=== PATIENT | female | born 2000 | race American Indian/Alaskan Native ===

== ENCOUNTER 2021-03-27 07:05 | Emergency (ER) | payer SELFPAY ==
--- NOTE | 2021-03-27 07:34 | Emergency Department Report ---
HPI - General Chief Complaint: Abdominal Pain Time Seen by Provider: 03/27/21 07:22 - HPI HPI: 20-year-old -[place] female presents to the emergency department with a complaint of some lower abdominal and pelvic pain, low back pain, vaginal bleedi ng including clots, that started a few hours prior to presentation while at work. The patient admits that she is trying to get but has not had any home tests and wonders whether she could be having a miscarriage. She denies any fever, dysuria, vaginal discharge, chest pain, shortness of breath. She has not taken anything for symptoms prior to presentation. She denies any past medical history other than anxiety. The patient was feeling anxious about her symptoms so she took her hydroxyzine this morning with some improvement. As part of the screening questions at triage, when asked if the patient has suicidal ideations, the patient admitted to having them intermittently. I asked the patient about this and she says that she does have them intermittently when she gets anxious. At the time of my examination she denies current suicidal ideations. She denies any homicidal ideations or any hallucinations. ED Past Medical Hx - Past Medical History Previous Medical History?: No - Surgical History Past Surgical History?: No ED Review of Systems ROS: Stated complaint: ABD PAIN Other details as noted in HPI Comment: All other systems reviewed and negative Constitutional: denies: chills, fever Eyes: denies: eye pain, vision change ENT: denies: ear pain, throat pain Respiratory: denies: cough, shortness of breath Cardiovascular: denies: chest pain, palpitations Gastrointestinal: abdominal pain. denies: vomiting Genitourinary: other (Pelvic pain, vaginal bleeding) Musculoskeletal: back pain. denies: arthralgia Skin: denies: rash, lesions Neurological: denies: headache, weakness Physical Exam - Physical Exam Vital Signs: Vital Signs 03/27/21 03/27/21 07:12 07:24 Temperature 100.4 F H Pulse Rate 93 H Respiratory 20 Rate Blood Pressure 120/60 [Right] O2 Sat by Pulse 96 98 Oximetry Physical Exam: GENERAL: The patient is well-developed well-nourished. HENT: Normocephalic. Atraumatic. Patient has moist mucous membranes. EYES: Extraocular motions are intact NECK: Supple. Trachea is midline. CHEST/LUNGS: Clear to auscultation. There is no respiratory distress noted. HEART/CARDIOVASCULAR: Regular. There is no tachycardia. There is no murmur. ABDOMEN: Abdomen is soft, nontender. Patient has normal bowel sounds. SKIN: Skin is warm and dry. NEURO: The patient is awake, alert, and oriented. The patient is cooperative. Normal speech. MUSCULOSKELETAL: There is no tenderness or deformity. There is no limitation range of motion. ED Course Vital Signs 03/27/21 03/27/21 07:12 07:24 Temperature 100.4 F H Pulse Rate 93 H Respiratory 20 Rate Blood Pressure 120/60 [Right] O2 Sat by Pulse 96 98 Oximetry ED Medical Decision Making - Lab Data Result diagrams: 03/27/21 07:39 03/27/21 07:39 Lab Results 03/27/21 03/27/21 03/27/21 Range/Units 07:30 07:30 07:39 WBC 3.4 L (4.5-11.0) K/mm3 RBC 4.32 (3.65-5.03) M/mm3 Hgb 12.0 (10.1-14.3) gm/dl Hct 38.6 (30.3-42.9) % MCV 89 (79-97) fl MCH 28 (28-32) pg MCHC 31 (30-34) % RDW 13.2 (13.2-15.2) % Plt Count 161 (140-440) K/mm3 Lymph % (Auto) [employer] [place] % (Auto) Metal Grinder Eos % (Auto) Metal Grinder Baso % (Auto) Metal Grinder Lymph # (Auto) Metal Grinder [place] # (Auto) Metal Grinder Eos # (Auto) Metal Grinder Baso # (Auto) Metal Grinder Seg Neutrophils % Metal Grinder Seg Neutrophils # Metal Grinder PT (12.2-14.9) Sec. INR (0.87-1.13) Sodium (137-145) mmol/L Potassium (3.6-5.0) mmol/L Chloride (98-107) mmol/L Carbon Dioxide (22-30) mmol/L Anion Gap mmol/L BUN (7-17) mg/dL Creatinine (0.6-1.2) mg/dL Estimated GFR ml/min BUN/Creatinine Ratio % Glucose (65-100) mg/dL Calcium (8.4-10.2) mg/dL Total Bilirubin (0.1-1.2) mg/dL Direct Bilirubin (0-0.2) mg/dL Indirect Bilirubin mg/dL AST (5-40) units/L ALT (7-56) units/L Alkaline Phosphatase (35-129) units/L Total Protein (6.3-8.2) g/dL Albumin (3.9-5) g/dL Albumin/Globulin Ratio % Lipase (13-60) units/L HCG, Qual (Negative) Urine Color Yellow (Yellow) Urine Turbidity Clear (Clear) Urine pH 8.0 H (5.0-7.0) Ur Specific [place] 1.016 (1.003-1.030) Urine Protein <15 mg/dl (Negative) mg/dL Urine Glucose (UA) Neg (Negative) mg/dL Urine Ketones Neg (Negative) mg/dL Urine Blood Neg (Negative) Urine Nitrite Neg (Negative) Urine Bilirubin Neg (Negative) Urine Urobilinogen < 2.0 (<2.0) mg/dL Ur Leukocyte Esterase Neg (Negative) Urine WBC (Auto) 2.0 (0.0-6.0) /HPF Urine RBC (Auto) 2.0 (0.0-6.0) /HPF U Epithel Cells (Auto) 2.0 (0-13.0) /HPF Urine Mucus Few /HPF Urine Opiates Screen Negative Urine Methadone Screen Negative Ur Barbiturates Screen Negative Ur Phencyclidine Scrn Negative Ur Amphetamines Screen Negative U Benzodiazepines Scrn Negative Urine Cocaine Screen Negative U Marijuana (THC) Screen Positive Drugs of Abuse Note Disclamer Plasma/Serum Alcohol (0-0.07) % 03/27/21 03/27/21 03/27/21 Range/Units 07:39 07:39 07:39 WBC (4.5-11.0) K/mm3 RBC (3.65-5.03) M/mm3 Hgb (10.1-14.3) gm/dl Hct (30.3-42.9) % MCV (79-97) fl MCH (28-32) pg MCHC (30-34) % RDW (13.2-15.2) % Plt Count (140-440) K/mm3 Lymph % (Auto) [place] % (Auto) Eos % (Auto) Baso % (Auto) Lymph # (Auto) [place] # (Auto) Eos # (Auto) Baso # (Auto) Seg Neutrophils % Seg Neutrophils # PT 14.0 (12.2-14.9) Sec. INR 0.97 (0.87-1.13) Sodium 140 (137-145) mmol/L Potassium 3.8 (3.6-5.0) mmol/L Chloride 103.5 (98-107) mmol/L Carbon Dioxide 23 (22-30) mmol/L Anion Gap 17 mmol/L BUN 10 (7-17) mg/dL Creatinine 1.1 (0.6-1.2) mg/dL Estimated GFR > 60 ml/min BUN/Creatinine Ratio 9 % Glucose 104 H (65-100) mg/dL Calcium 8.8 (8.4-10.2) mg/dL Total Bilirubin 0.20 (0.1-1.2) mg/dL Direct Bilirubin < 0.2 (0-0.2) mg/dL Indirect Bilirubin 0.0 mg/dL AST 17 (5-40) units/L ALT 10 (7-56) units/L Alkaline Phosphatase 50 (35-129) units/L Total Protein 6.5 (6.3-8.2) g/dL Albumin 4.0 (3.9-5) g/dL Albumin/Globulin Ratio 1.6 % Lipase 34 (13-60) units/L HCG, Qual Negative (Negative) Urine Color (Yellow) Urine Turbidity (Clear) Urine pH (5.0-7.0) Ur Specific [place] (1.003-1.030) Urine Protein (Negative) mg/dL Urine Glucose (UA) (Negative) mg/dL Urine Ketones (Negative) mg/dL Urine Blood (Negative) Urine Nitrite (Negative) Urine Bilirubin (Negative) Urine Urobilinogen (<2.0) mg/dL Ur Leukocyte Esterase (Negative) Urine WBC (Auto) (0.0-6.0) /HPF Urine RBC (Auto) (0.0-6.0) /HPF U Epithel Cells (Auto) (0-13.0) /HPF Urine Mucus /HPF Urine Opiates Screen Urine Methadone Screen Ur Barbiturates Screen Ur Phencyclidine Scrn Ur Amphetamines Screen U Benzodiazepines Scrn Urine Cocaine Screen U Marijuana (THC) Screen Drugs of Abuse Note Plasma/Serum Alcohol (0-0.07) % 03/27/ Range/Units 07:39 WBC (4.5-11.0) K/mm3 RBC (3.65-5.03) M/mm3 Hgb (10.1-14.3) gm/dl Hct (30.3-42.9) % MCV (79-97) fl MCH (28-32) pg MCHC (30-34) % RDW (13.2-15.2) % Plt Count (140-440) K/mm3 Lymph % (Auto) [place] % (Auto) Eos % (Auto) Baso % (Auto) Lymph # (Auto) [place] # (Auto) Eos # (Auto) Baso # (Auto) Seg Neutrophils % Seg Neutrophils # PT (12.2-14.9) Sec. INR (0.87-1.13) Sodium (137-145) mmol/L Potassium (3.6-5.0) mmol/L Chloride (98-107) mmol/L Carbon Dioxide (22-30) mmol/L Anion Gap mmol/L BUN (7-17) mg/dL Creatinine (0.6-1.2) mg/dL Estimated GFR ml/min BUN/Creatinine Ratio % Glucose (65-100) mg/dL Calcium (8.4-10.2) mg/dL Total Bilirubin (0.1-1.2) mg/dL Direct Bilirubin (0-0.2) mg/dL Indirect Bilirubin mg/dL AST (5-40) units/L ALT (7-56) units/L Alkaline Phosphatase (35-129) units/L Total Protein (6.3-8.2) g/dL Albumin (3.9-5) g/dL Albumin/Globulin Ratio % Lipase (13-60) units/L HCG, Qual (Negative) Urine Color (Yellow) Urine Turbidity (Clear) Urine pH (5.0-7.0) Ur Specific [place] (1.003-1.030) Urine Protein (Negative) mg/dL Urine Glucose (UA) (Negative) mg/dL Urine Ketones (Negative) mg/dL Urine Blood (Negative) Urine Nitrite (Negative) Urine Bilirubin (Negative) Urine Urobilinogen (<2.0) mg/dL Ur Leukocyte Esterase (Negative) Urine WBC (Auto) (0.0-6.0) /HPF Urine RBC (Auto) (0.0-6.0) /HPF U Epithel Cells (Auto) (0-13.0) /HPF Urine Mucus /HPF Urine Opiates Screen Urine Methadone Screen Ur Barbiturates Screen Ur Phencyclidine Scrn Ur Amphetamines Screen U Benzodiazepines Scrn Urine Cocaine Screen U Marijuana (THC) Screen Drugs of Abuse Note Plasma/Serum Alcohol 0.00 (0-0.07) % - Radiology Data Radiology results: report reviewed ULTRASOUND PELVIS INDICATION: pelvic pain. TECHNIQUE: Transabdominal and Transvaginal. Duplex Color Doppler used: Yes. COMPARISON: None available F INDINGS: Uterus: Present. Size: 7.8 x 3.6 x 4.6 cm. Endometrial complex: Normal measuring 0.4 cm. Mass lesions: None. Additional findings: None. Right Ovary: Size: 3.2 x 1.3 x 1.3 cm Blood flow: Normal. Cyst or mass: None. Left Ovary: Size: 3.5 x 1.5 x 1.8 cm Blood flow: Normal. Cyst or mass: None. Urinary Bladder: Normal. Free Fluid: Small amount along the cul-de-sac. Additional Findings: None. IMPRESSION: 1. No acute sonographic abnormality of the pelvis. 2. Small amount of free fluid in the pelvis is favored to be physiologic. - Medical Decision Making This patient presents to the emergency department with a complaint of some vaginal bleeding, intermittent pelvic pain. Patient does not appear in any acute distress. She was given a dose of [place] for her discomfort and her pain has resolved by the time of discharge. Labs have been unremarkable including CBC, metabolic panel, urinalysis and the patient is not . She had a transvaginal/pelvic ultrasound that does not show any evidence of ovarian torsion, or any other acute process or etiology of the patient's discomfort. The patient appears safe for discharge home and has been given outpatient referrals for [facility]. Initially there was some concern that the patient needed a mental health evaluation. As part of the triage questions, the patient said that she had intermittent suicidal ideations. However, at the time of my examination the patient denies any suicidal or homicidal ideations. She does not exhibit any signs of acute psychosis. She has a normal decision-making capacity and does not appear to be appropriate for a 1013. The patient said that sometimes she will have suicidal ideations when she is having severe anxiety, which she does not have at this time. 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 She was given outpatient referrals for therapist and/or behavioral centers. She has been instructed to return to the emergency department with any worsening of her symptoms, thoughts of harming herself or others, or with any acute distress. Critical Care Time: No Critical care attestation.: If time is entered above; I have spent that time in minutes in the direct care of this critically ill patient, excluding procedure time. ED Disposition Clinical Impression: Dysfunctional uterine bleeding, Pelvic pain Disposition: HOME / SELF CARE / HOMELESS Is pt being admited?: No Condition: Stable Instructions: Pelvic Pain, Female, Dysfunctional Uterine Bleeding, Abdominal Pain (ED) Additional Instructions: Please follow-up with an [facility] in the next few days. Return to the emergency department with any worsening of your symptoms, new or concerning symptoms not addressed during this current emergency department visit, or with any acute distress. Referrals: PRIMARY CARE [Primary Care Provider] - 3-5 Days [facility] [Provider Group] - 3-5 Days [facility] [Provider Group] - 3-5 Days [facility] [Outside] - 3-5 Days Time of Disposition: 12:07
[2021-03-27 09:06] LABS: INR 0.97 (0.87-1.13)
[2021-03-27 09:59] LABS: Bilirubin,Urine NEG (Negative); Blood,Urine NEG (Negative); Color,Urine Yellow (Yellow); Mucus,Urine FEW /HPF; Protein,Urine <15 mg/dL mg/dL (Negative); Urobilinogen,Urine < 2.0 mg/dL (<2.0)
[2021-03-27 10:00] LABS: Alanine Aminotransferase 10 units/L (7-56); BUN/Creatinine Ratio 9; Bilirubin,Direct < 0.2 mg/dL (0-0.2); Blood Urea Nitrogen 10 mg/dL (7-17); Calcium 8.8 mg/dL (8.4-10.2); Hemolysis Index 7
[2021-03-27 10:05] LABS: Amphetamine Screen,Urine Negative; Benzodiazepines Screen,Urine Negative; Cocaine Screen,Urine Negative; Methadone Screen,Urine Negative; Opiate Screen,Urine Negative
[2021-03-27 10:17] LABS: Cannabinoid Screen,Urine Positive
[2021-03-27] MEDS ORDERED: HYDROcodone/ACETAMINOPHEN 5-325 MG TAB PO ONE (10:17)
[2021-03-27 10:31] LABS: Hematocrit 38.6 % (30.3-42.9); Mean Corpuscular HGB Conc 31 % (30-34); Mean Corpuscular Volume 89 fl (79-97); Platelet Count 161 K/mm3 (140-440); Red Blood Count 4.32 M/mm3 (3.65-5.03); Red Cell Distribution Width 13.2 % (13.2-15.2)
--- NOTE | 2021-03-27 11:47 | Ultrasound Report ---
ULTRASOUND PELVIS INDICATION: pelvic pain. TECHNIQUE: Transabdominal and Transvaginal. Duplex Color Doppler used: Yes. COMPARISON: None available FINDINGS: Uterus: Present. Size: 7.8 x 3.6 x 4.6 cm. Endometrial complex: Normal measuring 0.4 cm. Mass lesions: None. Additional findings: None. Right Ovary: Size: 3.2 x 1.3 x 1.3 cm Blood flow: Normal. Cyst or mass: None. Left Ovary: Size: 3.5 x 1.5 x 1.8 cm Blood flow: Normal. Cyst or mass: None. Urinary Bladder: Normal. Free Fluid: Small amount along the cul-de-sac. Additional Findings: None. IMPRESSION: 1. No acute sonographic abnormality of the pelvis. 2. Small amount of free fluid in the pelvis is favored to be physiologic. Signer Name: Bruno Mitchell MD Signed: 03/27/2021 11:43 AM Workstation Name: [id number]
[2021-03-27 12:29] VITALS: BP 112/58
--- NOTE | 2021-03-27 13:03 | Consultation ---
History of Present Illness - Reason for Consult Consult date: 03/27/21 Reason for consult: MHE - History of Present Psychiatric Illness The patient was seen today. She says she initially came in for "cramping, and N/V." The patient says they asked her some questions about suicidal thoughts. She says "but I wasn't speaking of now. That was like have I ever had those th oughts, and yes, in the past a time or two." She denies SI/HI. The patient says "no, I do not feel like that. Not even a little bit." The patient denies any psych diagnoses or being on any psych meds. She denies ever having a suicidal attempt in the past. She denies hallucinations of any kind. PAST PSYCHIATRIC HISTORY: Diagnose: Denies Suicide attempts or Self-harm behavior: Denies Prior psychiatric hospitalizations: Denies Substance Abuse history: Denies Previous psychiatric medications tried: Denies Outpatient treatment: Unknown PAST MEDICAL HISTOtRY: unknown Family Psychiatric History: None reported or documented SOCIAL HISTORY Marital Status: Single Living Arrangements: Lives with family Employment Status: Employed Access to guns/weapons: Denies Education: History of Abuse:Denies Legal History: Denies REVIEW OF SYSTEMS Constitutional: Negative for weight loss ENT: Negative for stridor Respiratory: Negative for cough or hemoptysis All other systems reviewed and are negative MENTAL STATUS EXAMINATION General Appearance and Behavior: Age appropriate, good hygiene, wearing appropriate clothes. calm, cooperative Cooperation: Cooperative Psychomotor Behavior: Psychomotor normal Mood: good Affect and affective range: congruent with stated mood Thought Process: goal directed Thought Content: None Speech: Normal tone and pace Suicidal Ideation: Denies Homicidal Ideation: Denies Hallucinations: Denies Delusions: None elicited Impulse Control: Normal Insight and Judgment: Normal insight and poor judgment Memory: Normal Attention: attentive Orientation: a/o x 3 Assessment (1) Mental Health Evaluation Treatment Plan No meds at this time Sitter: Per primary Medical: per medical Disposition: Do not recommend acute psychiatric inpatient treatment Will sign off. Thanks Case staffed with Dr. Chávez. Medications and Allergies Allergies Allergy/AdvReac Type Severity Reaction Status Date / Time No Known Allergies Allergy Verified 03/27/21 07:22 Mental Status Exam - Vital signs Last Vital Signs Temp 100.4 F H 03/27/21 07:12 Pulse 76 03/27/21 12:29 Resp 12 03/27/21 12:29 BP 112/58 03/27/21 12:29 Pulse Ox 100 03/27/21 12:29 Results Result Diagrams: 03/27/21 07:39 03/27/21 07:39 Abnormal lab results 03/27/21 03/27/21 03/27/21 Range/Units 07:30 07:39 07:39 WBC 3.4 L (4.5-11.0) K/mm3 Glucose 104 H (65-100) mg/dL Urine pH 8.0 H (5.0-7.0) All other labs normal.
== END 2021-03-27 12:28 | disposition home or self-care (01) ==
LOC: ED 07:05
DX: N93.8 Other specified abnormal uterine and vaginal bleeding (principal); M54.50 Low back pain, unspecified; Z79.899 Other long term (current) drug therapy
CPT/HCPCS: 36415; 76830; 80048; 80076; 80307; 80320; 81001; 83690; 84703; 85025; 85610; 93975; 99284; G0480

== ENCOUNTER 2021-07-16 00:54 | Emergency (ER) | payer SELFPAY ==
[2021-07-16 01:03] VITALS: BP 116/64
[2021-07-16] MEDS: FAMOTIDINE 20 MG TAB PO ONE (03:05)
[2021-07-16] MEDS: ONDANSETRON 4 MG ODT TAB PO ONE (03:05)
[2021-07-16 03:31] LABS: Basophils % (Auto) 0.3 % (0.0-1.8); Eosinophils % (Auto) 0.5 % (0.0-4.3); Hematocrit 40.2 % (30.3-42.9); Hemoglobin 12.8 gm/dl (10.1-14.3); Lymphocytes # (Auto) 0.9 K/mm3 (1.2-5.4); Lymphocytes % (Auto) 13.5 % (13.4-35.0); Mean Corpuscular HGB Conc 32 % (30-34); Mean Corpuscular Volume 89 fl (79-97); Monocytes # (Auto) 0.5 K/mm3 (0.0-0.8); Monocytes % (Auto) 7.5 % (0.0-7.3); Platelet Count 123 K/mm3 (140-440); Red Blood Count 4.51 M/mm3 (3.65-5.03); Red Cell Distribution Width 13.5 % (13.2-15.2)
[2021-07-16 03:32] LABS: Bacteria,Urine 1+ /HPF (Negative); Bilirubin,Urine NEG (Negative); Blood,Urine NEG (Negative); Color,Urine Yellow (Yellow); Mucus,Urine 1+ /HPF; Urobilinogen,Urine < 2.0 mg/dL (<2.0)
[2021-07-16 03:45] LABS: Alanine Aminotransferase 13 units/L (7-56); Albumin 4.6 g/dL (3.9-5); BUN/Creatinine Ratio 14; Blood Urea Nitrogen 14 mg/dL (7-17); Calcium 8.9 mg/dL (8.4-10.2); Hemolysis Index 6
--- NOTE | 2021-07-16 04:03 | Emergency Department Report ---
ED N/V/D HPI - General Chief complaint: Nausea/Vomiting/Diarrhea Stated complaint: EMESIS/NAUSEA Source: patient Mode of arrival: Ambulatory Limitations: No Limitations - History of Present Illness Initial comments: Patient is a nulliparous 21-year-old -[place] female with no past medical history presents to the ED with complaint of acute onset persistent intermittent nausea and vomiting for the last 1 week. Patient states that she suspect she may be . Patient states that the nausea and vomiting is persistent and is triggered by food or smell of food, and worse in the morning when she wakes up. Patient denies abdominal pain, vaginal bleeding, dysuria, u rinary frequency and urgency, chest pain, shortness of breath, fever, chills, diarrhea, dizziness, syncope, headache, sore throat, cough, vaginal discharge or low back pain. MD complaint: nausea, vomiting -: Sudden, week(s) (1) Description of Vomiting: food contents, watery, bilious Associated Abdominal Pain: No Location: diffuse Radiation: none Severity: moderate Quality: aching, dull Consistency: intermittent Improves with: none Worsens with: eating, vomiting Context: possible food poisoning, other (Possibly ) Associated Symptoms: denies other symptoms, loss of appetite, nausea/vomiting. denies: myalgias, chest pain, cough, diaphoresis, fever/chills, headaches, malaise, rash, dysuria, shortness of breath, syncope, weakness - Related Data Previous Rx's Medication Instructions Recorded Last Taken Type Famotidine [Pepcid] 20 mg PO BID #60 tablet 07/16/21 Unknown Rx Ondansetron [Zofran Odt] 4 mg PO Q6HR PRN #20 tab.rapdis 07/16/21 Unknown Rx cephALEXin [Keflex] 500 mg PO Q8HR #30 cap 07/16/21 Unknown Rx Allergies Allergy/AdvReac Type Severity Reaction Status Date / Time No Known Allergies Allergy Verified 03/27/21 07:22 ED Review of Systems ROS: Stated complaint: EMESIS/NAUSEA Other details as noted in HPI Constitutional: denies: chills, fever Eyes: denies: eye pain, eye discharge, vision change ENT: denies: ear pain, throat pain Respiratory: denies: cough, shortness of breath, wheezing Cardiovascular: denies: chest pain, palpitations Endocrine: no symptoms reported Gastrointestinal: nausea, vomiting. denies: abdominal pain, diarrhea Genitourinary: denies: urgency, dysuria, discharge Musculoskeletal: denies: back pain, joint swelling, arthralgia Skin: denies: rash, lesions Neurological: denies: headache, weakness, paresthesias Psychiatric: denies: anxiety, depression Hematological/Lymphatic: denies: easy bleeding, easy bruising ED Past Medical Hx - Social History Smoking Status: Current Every Day Smoker - Medications Home Medications: Home Medications Medication Instructions Recorded Confirmed Last Taken Type Famotidine [Pepcid] 20 mg PO BID #60 tablet 07/16/21 Unknown Rx Ondansetron [Zofran Odt] 4 mg PO Q6HR PRN #20 tab.rapdis 07/16/21 Unknown Rx cephALEXin [Keflex] 500 mg PO Q8HR #30 cap 07/16/21 Unknown Rx ED Physical Exam - General Limitations: No Limitations General appearance: alert, in no apparent distress - Head Head exam: Present: atraumatic, normocephalic, normal inspection - Eye Eye exam: Present: normal appearance, PERRL, EOMI Pupils: Present: normal accommodation - ENT ENT exam: Present: normal exam, normal orophraynx, mucous membranes moist, TM's normal bilaterally, normal external ear exam - Neck Neck exam: Present: normal inspection, full ROM. Absent: tenderness - Respiratory Respiratory exam: Present: normal lung sounds bilaterally. Absent: respiratory distress, wheezes, rales, rhonchi, chest wall tenderness, accessory muscle use, decreased breath sounds, prolonged expiratory - Cardiovascular Cardiovascular Exam: Present: regular rate, normal rhythm, normal heart sounds. Absent: systolic murmur, diastolic murmur, rubs, gallop - GI/Abdominal GI/Abdominal exam: Present: soft, normal bowel sounds. Absent: tenderness, guarding, rebound, hyperactive bowel sounds, hypoactive bowel sounds, organomegaly - Extremities Exam Extremities exam: Present: normal inspection, full ROM, normal capillary refill - Back Exam Back exam: Present: normal inspection, full ROM. Absent: tenderness, CVA tenderness (R), CVA tenderness (L), muscle spasm, paraspinal tenderness, vertebral tenderness - Neurological Exam Neurological exam: Present: alert, oriented X3, CN II-XII intact, normal gait, reflexes normal - Psychiatric Psychiatric exam: Present: normal affect, normal mood - Skin Skin exam: Present: warm, dry, intact, normal color. Absent: rash ED Course Vital Signs 07/16/21 00:59 Temperature 97.7 F Pulse Rate 79 Respiratory 20 Rate Blood Pressure 116/64 O2 Sat by Pulse 100 Oximetry ED Medical Decision Making - Lab Data Result diagrams: 07/16/21 03:05 07/16/21 03:05 - Medical Decision Making This is a nulliparous 21-year-old -[place] female with no past medical history presents to the ED with complaint of acute onset persistent intermittent nausea and vomiting for the last 1 week. Patient states that she suspect she may be . Patient states that the nausea and vomiting is persistent and is triggered by food or smell of food, and worse in the morning when she wakes up. In the ED, patient is alert and oriented x3 and is not in any distress. Patient was treated in the ED for nausea and vomiting and also given antacids. Lab test results were reviewed and are all nonactionable except for significant urinary tract infection in urinalysis. Serum qualitative hCG test was negative. Patient was discharged home on medications and advised to follow-up with her primary care physician in 7 to 10 days for reevaluation or return to the ED immediately if symptoms get worse. - Differential Diagnosis GERD; UTI; ; gastroenteritis; dehydration Critical care attestation.: If time is entered above; I have spent that time in minutes in the direct care of this critically ill patient, excluding procedure time. ED Disposition Clinical Impression: Nausea and vomiting in adult patient, Acute urinary tract infection Disposition: HOME / SELF CARE / HOMELESS Is pt being admited?: No Does the pt Need Aspirin: No Condition: Stable Instructions: Nausea and Vomiting, Adult, [id number], Urinary Tract Infection, Adult, [id number] Additional Instructions: All lab test results were reviewed and are all nonactionable including hCG test which was negative. Urinalysis showed significant urinary tract infection. Therefore take medication as advised for nausea and vomiting as well as antibiotics for urinary tract infection, drink plenty of fluids and follow-up with your primary care physician in 7 to 10 days for reevaluation. Return to the ED immediately if symptoms get worse. Prescriptions: cephALEXin [Keflex] 500 mg PO Q8HR #30 cap Famotidine [Pepcid] 20 mg PO BID #60 tablet Ondansetron [Zofran Odt] 4 mg PO Q6HR PRN #20 tab.rapdis PRN Reason: Nausea Referrals: ANGEL FRAZIER MD [Primary Care Provider] - 3-5 Days Time of Disposition: 04:01 Print Language: BRITISH
== END 2021-07-16 04:37 | disposition home or self-care (01) ==
LOC: ED 00:54
DX: N39.0 Urinary tract infection, site not specified (principal); R11.2 Nausea with vomiting, unspecified; F17.200 Nicotine dependence, unspecified, uncomplicated; Z79.899 Other long term (current) drug therapy
CPT/HCPCS: 36415; 80053; 81001; 83690; 84703; 85025; 87086; 99283; J3490; Q0162